=== PATIENT | female | born 1995 | race African-American/Black ===

== ENCOUNTER 2016-10-16 15:56 | Emergency (ER) | payer MEDICAID ==
[~2016-10-16] VITALS: Ht 172.7 cm; Wt 100.0 kg
[~2016-10-16 15:56] MED LIST: PREN1CAP13 PO
[2016-10-16 16:12] VITALS: BP 92/57
== END 2016-10-16 19:00 | disposition left against medical advice (07) ==
LOC: ER 15:56
DX: O9A.212 Injury, poisoning and certain other consequences of external causes complicating pregnancy, second trimester (principal); S69.80XA Other specified injuries of unspecified wrist, hand and finger(s), initial encounter; W22.01XA Walked into wall, initial encounter; Y93.89 Activity, other specified; Y92.89 Other specified places as the place of occurrence of the external cause; Y99.8 Other external cause status

== ENCOUNTER 2016-11-29 10:14 | Observation (INO) | payer MEDICAID ==
[~2016-11-29] VITALS: Ht 170.2 cm; Wt 92.0 kg
[2016-11-29 11:04] VITALS: BP 99/58
[2016-11-29] MEDS ORDERED: ACET-3161 PO (12:00)
== END 2016-11-29 12:28 | disposition home or self-care (01) ==
LOC: ER 10:46 → L&D 11:55
PROVIDERS: ADMIT Specialist; ATTEND Specialist
DX: O99.512 Diseases of the respiratory system complicating pregnancy, second trimester (principal); J06.9 Acute upper respiratory infection, unspecified; J45.909 Unspecified asthma, uncomplicated; O99.352 Diseases of the nervous system complicating pregnancy, second trimester; M54.41 Lumbago with sciatica, right side; G89.29 Other chronic pain; O36.8120 Decreased fetal movements, second trimester, not applicable or unspecified; F17.210 Nicotine dependence, cigarettes, uncomplicated; O99.332 Smoking (tobacco) complicating pregnancy, second trimester; Z3A.22 22 weeks gestation of pregnancy
CPT/HCPCS: 93970; 99285; G0378; 99281

== ENCOUNTER 2017-02-22 05:14 | Observation (INO) | payer MEDICAID ==
[~2017-02-22] VITALS: Ht 172.7 cm; Wt 102.1 kg
[~2017-02-22 05:14] MED LIST changes: +ACET-3161 PO
[2017-02-22] MEDS ORDERED: ALBU6.7H INH (05:54)
[2017-02-22] MEDS ORDERED: LACTATED RINGERS 1,000 ML IV SCH (07:30)
[2017-02-22] MEDS ORDERED: TERBUTALINE SULFATE 1MG/ML VIAL SUBCUT PRN (07:30)
[2017-02-22 09:12] LABS: CLARITY URINE CLEAR (CLEAR); COLOR URINE YELLOW (YELLOW); GLUCOSE URINE 2+ (NEGATIVE); KETONES URINE TRACE (NEGATIVE); LEUKOCYTE ESTERASE URINE NEGATIVE (NEGATIVE); NITRITE URINE NEGATIVE (NEGATIVE); OCCULT BLOOD URINE NEGATIVE (NEGATIVE); PH URINE 6.5 (4.5-8.0); PROTEIN URINE TRACE (NEGATIVE); SPECIFIC GRAVITY URINE 1.018 (1.005-1.030)
[2017-02-22] MEDS ORDERED: METRONIDAZOLE 250MG TABLET PO NR (10:00)
== END 2017-02-22 10:45 | disposition home or self-care (01) ==
LOC: L&D 05:14
PROVIDERS: ADMIT Specialist; ATTEND Specialist
DX: O62.9 Abnormality of forces of labor, unspecified (principal); O26.893 Other specified pregnancy related conditions, third trimester; R10.2 Pelvic and perineal pain; Z3A.34 34 weeks gestation of pregnancy
CPT/HCPCS: 76815; 81001; 96360; 96361; 96372; 99281; G0378; J3105; J7120; 96365

== ENCOUNTER 2017-07-25 00:13 | Emergency (ER) | payer MEDICAID ==
[~2017-07-25] VITALS: Ht 170.2 cm; Wt 80.0 kg
[~2017-07-25 00:13] MED LIST changes: -ACET-3161 PO; +ALBU6.7H INH
[2017-07-25] MEDS ORDERED: CYCLOBENZAPRINE 10MG TABLET PO ONE (03:00)
[2017-07-25] MEDS ORDERED: IBUPROFEN 600MG TABLET PO ONE (03:00)
[2017-07-25 03:44] LABS: CLARITY URINE TURBID (CLEAR); COLOR URINE YELLOW (YELLOW); KETONES URINE TRACE (NEGATIVE); LEUKOCYTE ESTERASE URINE 2+ (NEGATIVE); NITRITE URINE NEGATIVE (NEGATIVE); OCCULT BLOOD URINE NEGATIVE (NEGATIVE); PH URINE 5.5 (4.5-8.0); PROTEIN URINE TRACE (NEGATIVE); SPECIFIC GRAVITY URINE 1.036 (1.005-1.030)
[2017-07-25 04:30] VITALS: BP 113/59
== END 2017-07-25 04:30 | disposition home or self-care (01) ==
LOC: ER 00:13
DX: M54.40 Lumbago with sciatica, unspecified side (principal); R20.0 Anesthesia of skin; J45.909 Unspecified asthma, uncomplicated; Z91.013 Allergy to seafood
CPT/HCPCS: 81001; 81025; 87086; 99284

== ENCOUNTER 2017-08-11 14:59 | Emergency (ER) | payer MEDICAID ==
[~2017-08-11] VITALS: Ht 172.7 cm; Wt 91.0 kg
[2017-08-11] MEDS ORDERED: HYDROCODONE/APAP 7.5/325MG 1 TAB TABLET PO ONE (20:30)
[2017-08-11] MEDS ORDERED: SODIUM CHLORIDE 0.9% 1,000 ML IV ONE (21:56)
[2017-08-11 22:33] LABS: CLARITY URINE CLOUDY (CLEAR); COLOR URINE YELLOW (YELLOW); KETONES URINE NEGATIVE (NEGATIVE); LEUKOCYTE ESTERASE URINE 1+ (NEGATIVE); NITRITE URINE NEGATIVE (NEGATIVE); OCCULT BLOOD URINE NEGATIVE (NEGATIVE); PROTEIN URINE NEGATIVE (NEGATIVE)
[2017-08-11 22:53] LABS: BASOPHILS % 1.2 % (0.0-2.0); EOSINOPHILS % 5.2 % (0.0-5.0); HEMATOCRIT. 33.3 % (36.0-48.0); HEMOGLOBIN. 10.5 g/dL (12.0-16.0); LYMPHOCYTES % 49.6 % (20.0-50.0); MEAN CORPUSCULAR HEMOGLOBIN 24.8 pg (28.0-32.0); MEAN CORPUSCULAR VOLUME 78.6 fL (81.0-99.0); MEAN PLATELET VOLUME 9.4 fl (7.4-10.4); PLATELET 199 x1000/uL (130-400); RED BLOOD CELL COUNT 4.23 mill/uL (4.2-5.4); RED CELL DISTRIBUTION WIDTH 15.8 % (11.6-14.6)
[2017-08-11 22:55] LABS: HCG SCREEN NEGATIVE
[2017-08-11 22:58] LABS: CHLORIDE 107 mEq/L (98-107)
[2017-08-12] MEDS ORDERED: ONDANSETRON 4MG ODT PO ONE (03:30)
[2017-08-12] MEDS ORDERED: MORPHINE SULFATE 4 MG/ML CPJ (NOT FOR IM USE) IV ONE (03:30)
[2017-08-12 05:20] VITALS: BP 108/64
== END 2017-08-12 05:20 | disposition home or self-care (01) ==
LOC: ER 20:49
DX: M54.30 Sciatica, unspecified side (principal); M79.605 Pain in left leg; J45.909 Unspecified asthma, uncomplicated; Z91.013 Allergy to seafood
CPT/HCPCS: 36415; 75635; 80053; 81003; 84703; 85025; 93971; 96361; 96374; 99285; J2270; J7030; Q0162; Z7610

== ENCOUNTER 2017-09-26 17:05 | Emergency (ER) | payer MEDICAID ==
[~2017-09-26] VITALS: Ht 162.6 cm; Wt 80.0 kg
[2017-09-26 17:07] VITALS: BP 100/61
[2017-09-26] MEDS ORDERED: ACETAMINOPHEN 325MG TABLET PO ONE (17:30)
[2017-09-26 18:57] LABS: BASOPHILS % 0.9 % (0.0-2.0); EOSINOPHILS % 2.5 % (0.0-5.0); HEMATOCRIT. 37.8 % (36.0-48.0); HEMOGLOBIN. 11.9 g/dL (12.0-16.0); LYMPHOCYTES % 30.3 % (20.0-50.0); MEAN CORPUSCULAR HEMOGLOBIN 25.4 pg (28.0-32.0); MEAN PLATELET VOLUME 9.5 fl (7.4-10.4); MONOCYTES % 8.3 % (2.0-8.0); PLATELET 219 x1000/uL (130-400); RED BLOOD CELL COUNT 4.66 mill/uL (4.2-5.4); RED CELL DISTRIBUTION WIDTH 16.7 % (11.6-14.6)
[2017-09-26 18:58] LABS: CHLORIDE 108 mEq/L (98-107)
== END 2017-09-26 23:24 | disposition left against medical advice (07) ==
LOC: ER 17:05
DX: R51 Headache (principal); R55 Syncope and collapse; R11.0 Nausea; J45.909 Unspecified asthma, uncomplicated
CPT/HCPCS: 36415; 80048; 85025; 99284

== ENCOUNTER 2018-03-03 11:45 | Emergency (ER) | payer MEDICAID ==
[~2018-03-03] VITALS: Ht 172.7 cm; Wt 87.0 kg
[2018-03-03 12:32] VITALS: BP 110/57
== END 2018-03-03 17:06 | disposition left against medical advice (07) ==
LOC: ER 15:00
DX: H92.02 Otalgia, left ear (principal); R07.89 Other chest pain; R11.2 Nausea with vomiting, unspecified; J45.909 Unspecified asthma, uncomplicated; M54.30 Sciatica, unspecified side; Z53.21 Procedure and treatment not carried out due to patient leaving prior to being seen by health care provider
CPT/HCPCS: 93005

== ENCOUNTER 2018-12-14 13:31 | Emergency (ER) | payer MEDICAID ==
[~2018-12-14] VITALS: Ht 170.2 cm; Wt 91.0 kg
[2018-12-14] MEDS ORDERED: IBUPROFEN 800MG TABLET PO ONE (14:30)
[2018-12-14] MEDS ORDERED: ACETAMINOPHEN 325MG TABLET PO ONE (16:30)
[2018-12-14 16:53] VITALS: BP 100/50
== END 2018-12-14 16:55 | disposition home or self-care (01) ==
LOC: ER 13:31
DX: S16.1XXA Strain of muscle, fascia and tendon at neck level, initial encounter (principal); S50.02XA Contusion of left elbow, initial encounter; S80.02XA Contusion of left knee, initial encounter; J45.909 Unspecified asthma, uncomplicated; M54.30 Sciatica, unspecified side; Z91.013 Allergy to seafood; V43.52XA Car driver injured in collision with other type car in traffic accident, initial encounter; Y93.89 Activity, other specified; Y92.488 Other paved roadways as the place of occurrence of the external cause
CPT/HCPCS: 72040; 72070; 73080; 73560; 81025; 99283

== ENCOUNTER 2019-01-01 14:52 | Emergency (ER) | payer MEDICAID ==
[~2019-01-01] VITALS: Ht 170.2 cm; Wt 90.0 kg
[2019-01-01] MEDS ORDERED: ACETAMINOPHEN 325MG TABLET PO ONE (19:00)
[2019-01-01] MEDS ORDERED: IBUPROFEN 600MG TABLET PO ONE (19:00)
[2019-01-01 20:47] VITALS: BP 111/67
== END 2019-01-01 20:47 | disposition home or self-care (01) ==
LOC: ER 14:52
DX: M25.562 Pain in left knee (principal); M54.5 Low back pain; J45.909 Unspecified asthma, uncomplicated; I95.9 Hypotension, unspecified; F17.210 Nicotine dependence, cigarettes, uncomplicated; V49.88XA Car occupant (driver) (passenger) injured in other specified transport accidents, initial encounter; Y93.89 Activity, other specified; Y92.89 Other specified places as the place of occurrence of the external cause; Y99.8 Other external cause status
CPT/HCPCS: 72100; 73562; 99283

== ENCOUNTER 2019-04-23 17:30 | Emergency (ER) | payer MEDICAID ==
[~2019-04-23] VITALS: Ht 172.7 cm; Wt 97.0 kg
[2019-04-23] MEDS ORDERED: SODIUM CHLORIDE 0.9% 1,000 ML IV ONE (20:20)
[2019-04-23] MEDS ORDERED: KETOROLAC 30MG/ML VIAL IV STA (20:20)
[2019-04-23 21:08] LABS: CLARITY URINE CLOUDY (CLEAR); COLOR URINE DARK YELLOW (YELLOW); KETONES URINE 2+ (NEGATIVE); LEUKOCYTE ESTERASE URINE 1+ (NEGATIVE); NITRITE URINE NEGATIVE (NEGATIVE); OCCULT BLOOD URINE NEGATIVE (NEGATIVE); PH URINE 6.5 (4.5-8.0); PROTEIN URINE 1+ (NEGATIVE); SPECIFIC GRAVITY URINE 1.041 (1.005-1.030)
[2019-04-23 21:28] LABS: HEMATOCRIT. 44.6 % (36.0-48.0); HEMOGLOBIN. 15.4 g/dL (12.0-16.0); MEAN CORPUSCULAR HEMOGLOBIN 31.6 pg (28.0-32.0); MEAN CORPUSCULAR VOLUME 91.9 fL (81.0-99.0); MEAN PLATELET VOLUME 10.3 fl (7.4-10.4); PLATELET 143 x1000/uL (130-400); RED BLOOD CELL COUNT 4.86 mill/uL (4.2-5.4); RED CELL DISTRIBUTION WIDTH 13.3 % (11.6-14.6)
[2019-04-23 21:41] LABS: CHLORIDE 106 mEq/L (98-107)
[2019-04-23 21:52] LABS: PLATELET ESTIMATE NORMAL
[2019-04-23 23:35] VITALS: BP 119/72
== END 2019-04-23 23:50 | disposition home or self-care (01) ==
LOC: ER 17:30
DX: N30.00 Acute cystitis without hematuria (principal); B34.9 Viral infection, unspecified; J45.909 Unspecified asthma, uncomplicated; R42 Dizziness and giddiness; Z91.013 Allergy to seafood
CPT/HCPCS: 36415; 71045; 80053; 81003; 81025; 85025; 93005; 96361; 96374; 99284; J1885; J7030

== ENCOUNTER 2019-08-22 13:55 | Emergency (ER) | payer MEDICAID ==
[~2019-08-22] VITALS: Ht 172.7 cm; Wt 105.0 kg
[~2019-08-22 13:55] MED LIST changes: -ALBU6.7H INH; +ALBU6.7H11 INH
[2019-08-22] MEDS ORDERED: KETOROLAC 60MG/2ML VIAL IM ONE (15:15)
[2019-08-22 15:22] VITALS: BP 101/42
== END 2019-08-22 15:59 | disposition home or self-care (01) ==
LOC: ER 15:48
DX: J06.9 Acute upper respiratory infection, unspecified (principal); J45.909 Unspecified asthma, uncomplicated
CPT/HCPCS: 81025; 96372; 99283; J1885

== ENCOUNTER 2020-04-05 11:06 | Emergency (ER) | payer MEDICAID ==
[~2020-04-05] VITALS: Ht 172.7 cm; Wt 102.0 kg
[2020-04-05] MEDS ORDERED: SODIUM CHLORIDE 0.9% 1,000 ML IV ONE (12:15)
[2020-04-05] MEDS ORDERED: METOCLOPRAMIDE HCL 10MG/2ML VIAL IV ONE (12:15)
[2020-04-05 12:47] LABS: EOSINOPHILS % 1.3 % (0.0-5.0); HEMATOCRIT. 45.1 % (36.0-48.0); HEMOGLOBIN. 15.2 g/dL (12.0-16.0); MEAN CORPUSCULAR HEMOGLOBIN 31.6 pg (28.0-32.0); MEAN PLATELET VOLUME 10.9 fl (7.4-10.4); MONOCYTES % 9.4 % (2.0-8.0); NEUTROPHILS % 58.3 % (40.0-76.0); PLATELET 142 x1000/uL (130-400); RED CELL DISTRIBUTION WIDTH 13.9 % (11.6-14.6)
[2020-04-05 12:56] LABS: CHLORIDE 105 mEq/L (98-107)
[2020-04-05 13:07] LABS: CLARITY URINE CLOUDY (CLEAR); COLOR URINE DARK YELLOW (YELLOW); KETONES URINE 1+ (NEGATIVE); LEUKOCYTE ESTERASE URINE 1+ (NEGATIVE); NITRITE URINE NEGATIVE (NEGATIVE); OCCULT BLOOD URINE NEGATIVE (NEGATIVE); PH URINE 6.5 (4.5-8.0); PROTEIN URINE TRACE (NEGATIVE); SPECIFIC GRAVITY URINE 1.029 (1.005-1.030)
[2020-04-05 13:10] LABS: HCG SCREEN POSITIVE
[2020-04-05 13:20] LABS: B-HCG QUANTITATIVE 113303 mIU/mL (<3)
[2020-04-05 15:41] VITALS: BP 97/64
== END 2020-04-05 15:49 | disposition home or self-care (01) ==
LOC: ER 11:23
DX: O20.8 Other hemorrhage in early pregnancy (principal); O23.41 Unspecified infection of urinary tract in pregnancy, first trimester; O26.891 Other specified pregnancy related conditions, first trimester; J45.909 Unspecified asthma, uncomplicated; M54.30 Sciatica, unspecified side; Z3A.01 Less than 8 weeks gestation of pregnancy; Z91.013 Allergy to seafood
CPT/HCPCS: 36415; 76801; 76817; 80053; 81003; 81025; 84702; 84703; 85025; 87086; 93005; 96361; 96374; 99285; J2765; J7030

== ENCOUNTER 2020-05-22 15:09 | Emergency (ER) | payer MEDICAID ==
[~2020-05-22] VITALS: Ht 175.3 cm; Wt 85.0 kg
[2020-05-22] MEDS ORDERED: ACETAMINOPHEN 325MG TABLET PO STA (15:36)
[2020-05-22] MEDS ORDERED: SODIUM CHLORIDE 0.9% 1,000 ML IV ONE (15:45)
[2020-05-22 16:15] LABS: CLARITY URINE TURBID (CLEAR); COLOR URINE YELLOW (YELLOW); KETONES URINE NEGATIVE (NEGATIVE); LEUKOCYTE ESTERASE URINE 2+ (NEGATIVE); NITRITE URINE NEGATIVE (NEGATIVE); OCCULT BLOOD URINE NEGATIVE (NEGATIVE); PH URINE 7.5 (4.5-8.0); PROTEIN URINE NEGATIVE (NEGATIVE); SPECIFIC GRAVITY URINE 1.023 (1.005-1.030)
[2020-05-22 16:37] LABS: BASOPHILS % 0.7 % (0.0-2.0); EOSINOPHILS % 1.3 % (0.0-5.0); HEMATOCRIT. 38.1 % (36.0-48.0); HEMOGLOBIN. 13.2 g/dL (12.0-16.0); LYMPHOCYTES % 25.3 % (20.0-50.0); MEAN CORPUSCULAR HEMOGLOBIN 31.6 pg (28.0-32.0); MEAN CORPUSCULAR VOLUME 91.1 fL (81.0-99.0); MONOCYTES % 6.3 % (2.0-8.0); NEUTROPHILS % 66.4 % (40.0-76.0); PLATELET 147 x1000/uL (130-400); RED BLOOD CELL COUNT 4.19 mill/uL (4.2-5.4); RED CELL DISTRIBUTION WIDTH 12.4 % (11.6-14.6)
[2020-05-22 16:44] LABS: CHLORIDE 107 mEq/L (98-107)
[2020-05-22 16:52] LABS: INR 0.9; PROTHROMBIN TIME 9.7 sec (9.6-11.0)
[2020-05-22 17:09] LABS: B-HCG QUANTITATIVE 62328 mIU/mL (<3)
[2020-05-22 18:24] VITALS: BP 109/61
== END 2020-05-22 18:25 | disposition home or self-care (01) ==
LOC: ER 15:09
DX: O23.41 Unspecified infection of urinary tract in pregnancy, first trimester (principal); O20.8 Other hemorrhage in early pregnancy; O26.891 Other specified pregnancy related conditions, first trimester; R10.32 Left lower quadrant pain; J45.909 Unspecified asthma, uncomplicated; Z3A.13 13 weeks gestation of pregnancy; Z91.013 Allergy to seafood
CPT/HCPCS: 36415; 76801; 76817; 80053; 81003; 81025; 84702; 85025; 85610; 86850; 86900; 86901; 96360; 96361; 99284; J7030

== ENCOUNTER 2022-06-11 10:12 | Emergency (ER) | payer MEDICAID, OTHER ==
[~2022-06-11] VITALS: Ht 172.7 cm; Wt 107.0 kg
[~2022-06-11 10:12] MED LIST changes: -ALBU6.7H11 INH; +ALBU6.7H15 INH
[2022-06-11 10:20] VITALS: BP 122/78
== END 2022-06-11 13:03 | disposition left against medical advice (07) ==
LOC: ER 10:12
DX: Z53.21 Procedure and treatment not carried out due to patient leaving prior to being seen by health care provider (principal)